=== PATIENT | male | born 1975 | race Two or more races ===

== ENCOUNTER 2021-04-26 09:46 | Outpatient (REF) | payer OTHER, SELFPAY ==
[2021-04-26 11:02] LABS: Hematocrit 45.8 % (42.0-52.0); Hemoglobin 16.2 g/dl (14.0-18.0); Mean Corpuscular HGB Conc 35.4 g/dl (31.0-36.0); Mean Corpuscular Hemoglobin 30.2 pg (27.0-33.0); Mean Corpuscular Volume 85.3 fL (80.0-98.0); Mean Platelet Volume 10.2 fL (9.4-12.4); Platelet Count 249 X10*3/uL (160-400); Red Blood Count 5.37 X10*6/uL (4.60-5.80); Red Cell Distribution Width 11.2 % (11.0-16.0); White Blood Count 7.4 X10*3/uL (4.8-10.8)
[2021-04-26 11:33] LABS: Alanine Aminotransferase 20 U/L (0-40); Albumin Level 4.7 g/dL (3.5-5.0); Alkaline Phosphatase 64 U/L (39-117); Anion Gap 14 (12-20); Aspartate Amino Transferase 13 U/L (5-37); Blood Urea Nitrogen 10 mg/dL (9-16); Calcium 9.9 mg/dL (8.4-10.2); Carbon Dioxide 27 mmol/L (22-29); Chloride 102 mmol/L (96-108); Cholesterol 266 mg/dL; Estimated Glomerular Filt Rate > 60; Glucose Fasting 220 mg/dL (60-99); HDL Cholesterol 38 mg/dL; LDL Cholesterol Calculated 200 mg/dl; Potassium 4.5 mmol/L (3.3-5.1); Sodium 138 mmol/L (135-145); Triglycerides 143 mg/dL
[2021-04-26 11:46] LABS: Prostate Specific Antigen Scr 0.32 ng/mL (<0.05-4.0); TSH reflex Free T4 0.77 uIU/mL (0.32-4.0)
== END 2021-04-26 09:47 | disposition home or self-care (01) ==
LOC: HO.LAB 09:46
PROVIDERS: PCP Physician Assistant; Visit Provider Physician Assistant
DX: E11.9 Type 2 diabetes mellitus without complications (principal); I10 Essential (primary) hypertension; Z12.5 Encounter for screening for malignant neoplasm of prostate
CPT/HCPCS: 36415; 80053; 80061; 84153; 84443; 85027

== ENCOUNTER 2022-08-05 06:15 | Outpatient (REF) | payer OTHER, SELFPAY ==
[2022-08-05 07:34] LABS: Hematocrit 46.9 % (42.0-52.0); Hemoglobin 16.2 g/dl (14.0-18.0); Mean Corpuscular HGB Conc 34.5 g/dl (31.0-36.0); Mean Corpuscular Hemoglobin 29.6 pg (27.0-33.0); Mean Corpuscular Volume 85.7 fL (80.0-98.0); Mean Platelet Volume 10.1 fL (9.4-12.4); Platelet Count 249 X10*3/uL (160-400); Red Blood Count 5.47 X10*6/uL (4.60-5.80); Red Cell Distribution Width 11.3 % (11.0-16.0)
[2022-08-05 08:04] LABS: Microalbum/Creatinine Ratio Ur 11.5 ug/mg cr
[2022-08-05 08:10] LABS: Alanine Aminotransferase 15 U/L (0-40); Albumin Level 4.4 g/dL (3.5-5.0); Alkaline Phosphatase 67 U/L (39-117); Anion Gap 12 (12-20); Aspartate Amino Transferase 13 U/L (5-37); Blood Urea Nitrogen 14 mg/dL (9-16); Calcium 9.3 mg/dL (8.4-10.2); Carbon Dioxide 29 mmol/L (22-29); Chloride 101 mmol/L (96-108); Cholesterol 246 mg/dL; Estimated Glomerular Filt Rate > 60; Glucose Fasting 279 mg/dL (60-99); HDL Cholesterol 37 mg/dL; LDL Cholesterol Calculated 173 mg/dl; Potassium 4.4 mmol/L (3.3-5.1); Sodium 138 mmol/L (135-145); Total Protein 6.4 g/dL (6.5-8.0); Triglycerides 181 mg/dL
[2022-08-05 08:25] LABS: Prostate Specific Antigen Scr 0.35 ng/mL (<0.05-4.0); TSH reflex Free T4 2.53 uIU/mL (0.32-4.0)
== END 2022-08-05 06:16 | disposition home or self-care (01) ==
LOC: HO.LAB 06:15
PROVIDERS: PCP Physician Assistant; Visit Provider Physician Assistant
DX: E11.9 Type 2 diabetes mellitus without complications (principal); Z12.5 Encounter for screening for malignant neoplasm of prostate
CPT/HCPCS: 36415; 80053; 80061; 82043; 84153; 84443; 85027

== ENCOUNTER 2022-08-21 15:01 | Outpatient (REF) | payer OTHER, SELFPAY ==
[2022-08-21 16:09] LABS: Estimated Average Glucose 252 mg/dL; Hemoglobin A1c % 10.4 %
== END 2022-08-21 15:02 | disposition home or self-care (01) ==
LOC: HO.LAB 15:01
PROVIDERS: Visit Provider Nurse Practitioner Family
DX: E11.9 Type 2 diabetes mellitus without complications (principal)
CPT/HCPCS: 36415; 83036

== ENCOUNTER 2022-12-21 08:42 | Outpatient (AMB) | payer OTHER, SELFPAY ==
[2022-12-21 08:44] VITALS: BP 110/70; PULSE 89; O2SAT 95; BMI 26.1
--- NOTE | 2022-12-21 08:44 | A.OFFPC_ITS ---
Vital Signs 12/21/22 08:44 Height 5 ft 8 in Weight 172 lb BMI 26.1 BP 110/70 Blood Pressure Location Lt brachial Position Sitting Pulse 89 Pulse Source Pulse Oximeter Pulse Oximetry (%) 95 Oxygen Delivery Method Room Air Intake Visit Reasons: 3mth f/u Round Kiln Drawer Required: No Accompanied by: Self / Same As Patient Allergies canagliflozin [Invokana] Allergy (Unknown, Verified 12/21/22 08:53) joint pain empagliflozin [From Jardiance] Allergy (Unknown, Verified 12/21/22 08:53) joint pain Medication List - Last Reconciled 12/21/22 by Chino Gutierrez PA-C alcohol swabs 1 pad topical BID 30 days aspirin 81 mg PO DAILY blood sugar diagnostic (FreeStyle Lite Strips) 1 strip miscellaneous BID 30 days bupropion HCl 150 mg PO BID dulaglutide (Trulicity) 3 mg subcut QWEEK 4 weeks hydrocortisone 1% (Anti-Itch (hydrocortisone)) 1 appl topical BEDTIME PRN 30 days lisinopril 2.5 mg PO DAILY metformin 500 mg PO BID omeprazole 20 mg PO DAILY rosuvastatin 40 mg PO DAILY sildenafil 100 mg PO DAILY 10 days Tobacco use date assessed: 12/21/22 Dental Screening Dental Screen Date: 12/21/22 Did you have a dental visit in the last 12 months?: No Did you have a dental problem in the last 6 months where you did not have access to dental care?: No Was dental information given to patient?: No HPI 3mth f/u HPI Details Patient is a 47-year-old male here today for follow-up visit.? Patient has a past medical history significant type 2 diabetes, hyperlipidemia tobacco use disorder. Concerns--> report having globalized myalgias over the last several years though has worsened over the last few weeks. He reports his muscles in his upper extremity and lower extremities a very painful when he tries to do physical activity. .. Type 2 diabetes:? Patient diabetes not well controlled, Reports his diet has not been a strict diabetic diet.? He continues with once a week 3m Trulicity and metformin a 500 b.i.d.. Today's A1c much improved at 7.3 from over 10. You otherwise denies any polyuria, polydipsia. .. Hyperlipidemia: Has a history of high cholesterol, most recent lipid panel showing very elevated total cholesterol and LDL for his cardiovascular risk being a smoker and a type 2 diabetic. Patient does understand and willing to continue on statin therapy. .. Smoker:? She does understand he needs to quit smoking though has found very d ifficult to do so.? He is willing to retry nicotine replacement. Has tried Wellbutrin though is not effective for him. Will consider Chantix in near future if nicotine patches not effective. Laboratory Tests 08/05/21 08/05/22 08/05/22 16:16 06:18 06:18 RBC 5.47 Hgb 16.2 Hgb A1c (Clinic) 9.7 H Hemoglobin A1c % Cholesterol 246 LDL Cholesterol, C alc 173 08/21/22 15:08 RBC Hgb Hgb A1c (Clinic) Hemoglobin A1c % 10.4 Cholesterol LDL Cholesterol, C alc [facility] Surgical History History of appendectomy Family History Father Diabetes CVD (cardiovascular disease) Heart problem Mother Hypoglycemia Daughter Hypoglycemia Daughter In good health Son No problems noted. Son No problems noted. Son No problems noted. Brother No problems noted. Social History Housing: House Alcohol intake: current Alcohol intake frequency: a few times a month Patient Tobacco Use Status: Current everyday Tobacco user Tobacco use type: Cigarette Cigarette Packs Per Day: 1 e-Cigarette/Vaping Use: Never Used Second Hand Smoke Exposure: No service: No Current occupational status: employed Current occupation: route salesman and driver Cognitive needs: No Hearing needs: No Vision needs: No Questionnaire PHQ-9 Over the last 2 weeks, how often have you been bothered by any of the following problems? 1. Little interest or pleasure in doing things: not at all 2. Feeling down, depressed, or hopeless: not at all 3. Trouble falling or staying asleep, or sleeping too much: not at all 4. Feeling tired or having little energy: not at all 5. Poor appetite or overeating: not at all 6. Feeling bad about yourself - or that you are a failure or have let yourself or your family down: not at all 7. Trouble concentrating on things, such as reading the newspaper or watching television: not at all 8. Moving or speaking so slowly that other people could have noticed. Or the opposite - being so fidgety or restless that you have been moving around a lot more than usual: not at all 9. Thoughts that you would be better off or of hurting yourself in some way: not at all Total score: 0 Depression Screening Interpretation: Negative Source: Developed by Drs. Sean Webster, Carolyn Modi, Dillan Hernandez and colleagues, with an educational nick from [employer]. Thrive Questionnaire Date Thrive assessed: 12/21/22 I am a: Patient What is your living situation today?: I have a steady place to live Within the past 12 months, did the food you bought not last and you didn't have the money to get more?: Never true Within the past 12 months, did you worry whether your food would run out before you got money to buy more?: Never true Do you have trouble paying for medicines?: No Do you have trouble getting transportation to medical appointments?: No Do you have trouble paying your heating and electricity bill?: No Do you have trouble taking care of your child, family member or friend?: No Do you have trouble with day-to-day activities such as bathing, preparing meals, shopping, managing finances, etc.?: No Are you currently unemployed and looking for a job?: No Are you interested in more education?: No Please select the resources that you would like help with: None Currently or been in a relationship where the following occur: no concerns reported AUDIT C Alcohol Use Questionnaire (AUDIT-C) 1. How often do you have a drink containing alcohol?: 2-3 times a week 2. How many drinks containing alcohol do you have on a typical day when you are drinking?: 1 or 2 3. How often do you have six or more drinks on one occasion?: Never Total Score: 3 ANDRE-7 AMB Questionnaire ANDRE-7 Date ANDRE - 7 assessed: 12/21/22 Feeling nervous, anxious, or on edge: 0 = Not at all Not being able to stop or control worryin = Not at all Worrying too much about different things: 0 = Not at all Trouble relaxin = Not at all Being so restless that it is hard to sit still: 0 = Not at all Becoming easily annoyed or irritable: 0 = Not at all Feeling afraid as if something awful might happen: 0 = Not at all Total ANDRE-7 score (0-4 normal; 5-9 mild; 10-14 moderate; 15-21 severe): 0 Source: Developed by Drs. Sean Webster, Carolyn Modi, Dillan Hernandez and colleagues, with an educational nick from [employer]. ANDRE-7 Assessment Billing ANDRE-7 Assessment Tool: ANDRE-7 Assessment 33679 Review of Systems Const Denies headache(s) Eyes Denies loss of vision ENT Denies vertigo, Denies dizziness, Denies headache(s) and Denies sore throat Card Denies chest pain, Denies leg edema and Denies lightheadedness Resp Denies cough, Denies hemoptysis and Denies wheezing GI Denies abdominal pain, Denies melena, Denies constipation, Denies diarrhea and Denies vomiting Denies dysuria, Denies urinary frequency and Denies urinary urgency Musc Denies arthralgias, Denies joint swelling, Denies numbness and Denies tingling Neuro Denies Abnormal speech present, Denies behavioral changes, Denies vertigo, Denies dizziness, Denies headache(s), Denies loss of vision, Denies memory loss, Denies numbness and Denies tingling Psych Denies anxiety, Denies behavioral changes, Denies depression, Denies memory loss and Denies panic attacks Ac/Lymph Denies easy bleeding and Denies easy bruising Aller/Immun Denies wheezing Physical exam (Primary Care) Vital Signs: Last Vital Signs Pulse 89 12/21/22 08:44 BP 110/70 12/21/22 08:44 Pulse Ox 95 12/21/22 08:44 Oxygen Delivery Method Room Air 12/21/22 08:44 BMI result Body Mass Index 26.1 Tobacco/Smoking Status: Tobacco use Status Tobacco use date assessed 12/21/22 12/21/22 08:51 Patient Tobacco Use Status Current everyday Tobacco 12/21/22 08:51 Tobacco use type Cigarette 12/21/22 08:51 e-Cigarette/Vaping Use Never Used 12/21/22 08:51 Are you ready to quit: No Tobacco cessation counseling provided: Yes Relapse Prevention: discussed the importance of a supportive environment, discussed negative mood or depression after quitting and weight gain after smoking is common Number of minutes spent counselin CPT code: 45443 - 4-10 Minutes PHQ-9: PHQ-9 Score PHQ-9: Total score 0 12/21/22 09:00 Depression Screening Interpretation: Negative Thrive Assessment: Date of Thrive Assessment Date Thrive assessed 12/21/22 12/21/22 08:51 Currently or been in a relationship where the following occur: no concerns reported Const General: healthy appearing, no acute distress, alert and awake Nutritional Appearance: well nourished Orientation/consciousness: oriented to person, oriented to place and oriented to time HENMT Ears: TM's normal bilaterally General nose exam: Normal nasal mucous membranes and turbinates present Eyes Conjunctivae: conjunctivae normal Sclerae: sclerae normal Pupils: Equal, round and reactive pupils present Neck Neck: Yes no lymphadenopathy and Yes no JVD Thyroid: Thyroid normal Carotids: no bruits Resp Effort & Inspection: normal respiratory effort and not tachypneic Auscultation: no crackles, no rales, no rhonchi and no wheezes Cardio Rate: regular rate Rhythm: regular rhythm Heart sounds: no murmurs and normal S1 and S2 GI Palpation (GI): Soft to palpation, nontender, no hepatomegaly and no splenomegaly Auscultation: normal bowel sounds Skin General skin exam: no rashes or lesions noted and dry skin Neuro General: oriented to person, oriented to place and oriented to time Cranial nerves: Yes Equal, round and reactive pupils present Speech: No Abnormal speech present Gait exam (Neuro): Normal gait present Motor exam (neuro): no tremor noted Extrem Right upper extremity: full ROM Left upper extremity: full ROM Right lower extremity: full ROM; no edema Left lower extremity: full ROM; no edema Psych Mental Status: mental status grossly normal Speech and movement: Normal speech and movement present Affect: normal affect Attitude: cooperative Thought process: Normal thought process present Results AMB Hemoglobin A1c AMB Hemoglobin A1c 7.6 % Last Edit by Kacey James on 12/21/22 09:01 Results Reviewed Results Reviewed: Laboratory Last Values Hgb A1c (Clinic) 7.6 % (4.0-6.0) H 12/21/22 08:56 Assessment and Plan Assessment & Plan (1) DMII (diabetes mellitus, type 2): Code(s): E11.9 - Type 2 diabetes mellitus without complications Qualifiers: Diabetes mellitus complication status: without complication Diabetes mellitus termite exterminator helper insulin use: without termite exterminator helper use Qualified Code(s): E11.9 - Type 2 diabetes mellitus without complications Plan: Patient's type 2 diabetes suboptimally controlled with current medication. A1c has improved since increasing his Trulicity dose. Patient not able to tolerate metformin a 1000 b.i.d. though is able to tolerate 500 b.i.d.. He will continue working on lifestyle modifications to continue to control diabetes. Advised on increasing his physical activity as tolerated. G oal A1c to be below 7.0 (2) HLD (hyperlipidemia): Code(s): E78.5 - Hyperlipidemia, unspecified Qualifiers: Hyperlipidemia type: mixed hyperlipidemia Qualified Code(s): E78.2 - Mixed hyperlipidemia Plan: Continues on statin therapy, does report myalgias may be related to his statin therapy. Will transition him to simvastatin 40 mg. Advised on Co Q10 (3) Tobacco use disorder: Code(s): F17.200 - Nicotine dependence, unspecified, uncomplicated Plan: Unfortunately continues to smoke and does understand he needs to quit. Willing to try nicotine patches again to help him quit. Bupropion was was not effective. If nicotine replacement fails will consider generic Chantix (4) Myalgia: Code(s): M79.10 - Myalgia, unspecified site Orders: Orders Comprehensive [place]. Panel Fast Today E11.9 - Type 2 diabetes mellitus without complications Lipid Panel Today E78.2 - Mixed hyperlipidemia Microalbumin, Random (w Creat) Today E11.9 - Type 2 diabetes mellitus without complications Complete Blood Count no Diff Today E11.9 - Type 2 diabetes mellitus without complications AMB Hemoglobin A1c Today E11.9 - Type 2 diabetes mellitus without complications Medications: New nicotine 1 patch transdermal DAILY 14 days 14 ea 0RF F17.200 - Nicotine dependence, unspecified, uncomplicated nicotine 1 patch transdermal DAILY 14 days 14 ea 0RF F17.200 - Nicotine dependence, unspecified, uncomplicated simvastatin 40 mg PO DAILY 90 days 90 tabs 1RF E78.2 - Mixed hyperlipidemia magnesium oxide 250 mg PO DAILY 90 days 90 tabs 1RF M79.10 - Myalgia, unspecified site Discontinued bupropion HCl Discontinued Reason: Doctor's Order 150 mg PO BID 180 tabs 1RF F17.200 - Nicotine dependence, unspecified, uncomplicated rosuvastatin Discontinued Reason: Doctor's Order 40 mg PO DAILY 90 tabs 1RF E11.9 - Type 2 diabetes mellitus without complications Coding Level of Care Code Est Pt Level 4 (61682) Diagnoses DMII (diabetes mellitus, type 2) E11.9 Diabetes mellitus complication status: without complication Diabetes mellitus termite exterminator helper insulin use: without termite exterminator helper use HLD (hyperlipidemia) E78.2 Hyperlipidemia type: mixed hyperlipidemia Tobacco use disorder F17.200 Myalgia M79.10 Additional Codes ANDRE-7 Assessment Billing - ANDRE-7 Assessment Tool: ANDRE-7 Assessment 31433 ([id number]) Vital Signs *Quality* - CPT code: 32287 - 4-10 Minutes ([id number])
== END 2022-12-21 09:17 | disposition home or self-care (01) ==
PROVIDERS: PCP Physician Assistant; Visit Provider Physician Assistant
DX: E11.9 Type 2 diabetes mellitus without complications (principal); F17.210 Nicotine dependence, cigarettes, uncomplicated; E78.2 Mixed hyperlipidemia; M79.10 Myalgia, unspecified site
CPT/HCPCS: 83036; 99214

== ENCOUNTER 2022-12-21 09:19 | Outpatient (REF) | payer OTHER, SELFPAY ==
[2022-12-21 10:10] LABS: Hematocrit 45.8 % (42.0-52.0); Hemoglobin 15.6 g/dl (14.0-18.0); Mean Corpuscular HGB Conc 34.1 g/dl (31.0-36.0); Mean Corpuscular Hemoglobin 29.5 pg (27.0-33.0); Mean Corpuscular Volume 86.6 fL (80.0-98.0); Mean Platelet Volume 9.8 fL (9.4-12.4); Platelet Count 236 X10*3/uL (160-400); Red Blood Count 5.29 X10*6/uL (4.60-5.80); Red Cell Distribution Width 10.9 % (11.0-16.0); White Blood Count 6.6 X10*3/uL (4.8-10.8)
[2022-12-21 10:36] LABS: Alanine Aminotransferase 19 U/L (0-40); Albumin Level 4.7 g/dL (3.5-5.0); Alkaline Phosphatase 60 U/L (39-117); Anion Gap 13 (12-20); Aspartate Amino Transferase 14 U/L (5-37); Bilirubin Total 0.5 mg/dL (0.0-1.0); Blood Urea Nitrogen 16 mg/dL (9-16); Calcium 9.4 mg/dL (8.4-10.2); Carbon Dioxide 27 mmol/L (22-29); Chloride 103 mmol/L (96-108); Cholesterol 183 mg/dL; Estimated Glomerular Filt Rate > 60; Glucose Fasting 179 mg/dL (60-99); HDL Cholesterol 53 mg/dL; LDL Cholesterol Calculated 116 mg/dl; Potassium 4.4 mmol/L (3.3-5.1); Sodium 139 mmol/L (135-145); Total Protein 7.2 g/dL (6.5-8.0); Triglycerides 72 mg/dL
== END 2022-12-21 09:20 | disposition home or self-care (01) ==
LOC: HO.LAB 09:19
PROVIDERS: PCP Physician Assistant; Visit Provider Physician Assistant
DX: E11.9 Type 2 diabetes mellitus without complications (principal); E78.2 Mixed hyperlipidemia
CPT/HCPCS: 36415; 80053; 80061; 82043; 85027

== ENCOUNTER 2023-02-22 14:20 | Outpatient (AMB) | payer OTHER, SELFPAY ==
[2023-02-22 14:28] VITALS: BP 102/68; PULSE 100; RESP 16; O2SAT 98; BMI 26.0
--- NOTE | 2023-02-22 14:28 | MHC.PC.OV ---
Vital Signs 02/22/23 14:28 Height 5 ft 8 in Weight 171 lb BMI 26.0 BP 102/68 Blood Pressure Location Lt brachial Position Sitting Respiration 16 Pulse 100 Pulse Source Pulse Oximeter Pulse Oximetry (%) 98 Oxygen Delivery Method Room Air Intake Visit Reasons: Annual exam Intake Note: Patient is here today for a physical. Flyer Builder Required: No Accompanied by: Self / Same As Patient Allergies canagliflozin [Invokana] Allergy (Unknown, Verified 02/22/23 14:43) joint pain empagliflozin [From Jardiance] Allergy (Unknown, Verified 02/22/23 14:43) joint pain Medication List - Last Reconciled 02/22/23 by Chino Gutierrez PA-C alcohol swabs 1 pad topical BID 30 days aspirin 81 mg PO DAILY blood sugar diagnostic (FreeStyle Lite Strips) 1 strip miscellaneous BID 30 days dulaglutide (Trulicity) 3 mg subcut QWEEK 4 weeks hydrocortisone 1% (Anti-Itch (hydrocortisone)) 1 appl topical BEDTIME PRN 30 days lisinopril 2.5 mg PO DAILY magnesium oxide 250 mg PO DAILY 90 days metformin 500 mg PO BID nicotine 1 patch transdermal DAILY 14 days nicotine 1 patch transdermal DAILY 14 days omeprazole 20 mg PO DAILY sildenafil 100 mg PO DAILY 10 days simvastatin 40 mg PO DAILY 90 days Tobacco use date assessed: 12/21/22 Dental Screening Dental Screen Date: 02/22/23 Did you have a dental visit in the last 12 months?: Yes Did you have a dental problem in the last 6 months where you did not have access to dental care?: No Was dental information given to patient?: Patient has dentist HPI Annual exam HPI Details ? ? Patient is a 47-year-old male here today routine annual physical.? Patient has a past medical history significant type 2 diabetes, hyperlipidemia tobacco use disorder. --concern> Myalgias: We have switched his statin therapy to a lower potency statin though continues to have myalgias--> report having globalized myalgias over the last several years though has worsened over the last few weeks. He reports his muscles in his upper extremity and lower extremities a very painful when he tries to do physical activity. Also has been dealing with Peyronie's syndrome for the last couple years, has seen neurology in the past and was told he needed special injections own to be done in [place] by Urology. .. Type 2 diabetes:? Patient diabetes has been better controlled at due to be more compliant with his medication, Reports his diet has not been a strict diabetic diet.? He continues with once a week 3m Trulicity and metformin a 500 b.i.d.. Today's A1c much improved at 7.3 You otherwise denies any polyuria, polydipsia. .. Hyperlipidemia: Has a history of high cholesterol, most recent lipid panel showing very elevated total cholesterol and LDL for his cardiovascular risk being a smoker and a type 2 diabetic. Patient does understand and willing to continue on statin therapy. .. Smoker:? She does understand he needs to quit smoking though has found very difficult to do so.? He is willing to retry nicotine replacement. Has tried Wellbutrin though is not effective for him. Will consider Chantix in near future if nicotine patches not effective. Colon cancer screening: willing to do colonoscopy . Vaccines: Up-to-date with COVID vaccine, needs pneumonia vaccine, tetanus vaccine [facility] Surgical History History of appendectomy Family History Father Diabetes CVD (cardiovascular disease) Heart problem Mother Hypoglycemia Daughter Hypoglycemia Daughter In good health Son No problems noted. Son No problems noted. Son No problems noted. Brother No problems noted. Social History (Updated 02/22/23 @ 14:49 by Chino Gutierrez PA-C) Housing: House Alcohol intake: current Alcohol intake frequency: a few times a month Patient Tobacco Use Status: Current everyday Tobacco user Tobacco use type: Cigarette Cigarettes Per Day: 5 e-Cigarette/Vaping Use: Never Used Second Hand Smoke Exposure: No service: No Current occupational status: employed Current occupation: trailer truck driver Cognitive needs: No Hearing needs: No Vision needs: No Questionnaire Thrive Questionnaire Date Thrive assessed: 12/21/22 ANDRE-7 AMB Questionnaire ANDRE-7 Date ANDRE - 7 assessed: 12/21/22 Source: Developed by Drs. Sean Webster, Carolyn Modi, Dillan Hernandez and colleagues, with an educational nick from [employer]. Review of Systems Const Denies body aches, Denies chills, Denies excessive sweating, Denies fatigue, Denies fever(s) and Denies headache(s) Eyes Denies blurry vision ENT Denies dysphagia, Denies vertigo, Denies dizziness, Denies headache(s), Denies hearing loss and Denies tinnitus Card Denies chest pain, Denies chest pain with activity, Denies syncope, Denies irregular heart rhythm and Denies dyspnea Resp Denies chest congestion, Denies cough, Denies hemoptysis, Denies dyspnea and Denies wheezing GI Denies abdominal pain, Denies melena, Denies hematochezia, Denies coffee ground emesis, Denies dysphagia, Denies diarrhea, Denies nausea and Denies vomiting Denies difficulty urinating, Denies dysuria, Denies urinary frequency, Denies urinary hesitancy and Denies urinary urgency Musc Denies arthralgias, Denies limited range of motion, Denies muscle cramps and Denies muscle weakness Skin/Breast Denies rash and Denies skin ulcer Neuro Denies Abnormal speech present, Denies confusion, Denies vertigo, Denies dizziness, Denies syncope, Denies headache(s), Denies memory loss and Denies seizure-like activity Psych Denies anxiety, Denies confusion, Denies depression, Denies memory loss, Denies panic attacks and Denies paranoia Endo Denies excessive sweating, Denies fatigue, Denies flushing, Denies polydipsia and Denies polyuria Aller/Immun Denies wheezing Physical exam (Primary Care) Vital Signs: Last Vital Signs Pulse 100 02/22/23 14:28 Resp 16 02/22/23 14:28 BP 102/68 02/22/23 14:28 Pulse Ox 98 02/22/23 14:28 Oxygen Delivery Method Room Air 02/22/23 14:28 BMI result Body Mass Index 26.0 Tobacco/Smoking Status: Tobacco use Status Tobacco use date assessed 12/21/22 02/22/23 14:28 Patient Tobacco Use Status Current everyday Tobacco 02/22/23 14:49 Tobacco use type Cigarette 02/22/23 14:49 e-Cigarette/Vaping Use Never Used 02/22/23 14:49 Are you ready to quit: No Tobacco cessation counseling provided: Yes Relapse Prevention: discussed the importance of a supportive environment, discussed negative mood or depression after quitting, weight gain after smoking is common and discussed dietary, exercise and/or lifestyle changes Number of minutes spent counselin CPT code: 16717 - 4-10 Minutes Thrive Assessment: Date of Thrive Assessment Date Thrive assessed 12/21/22 02/22/23 14:28 Const General: cooperative, comfortable, no acute distress, alert and awake; No confusion Orientation/consciousness: oriented to person, oriented to place, patient oriented x3 and No confusion HENMT Head: Yes normocephalic Ears: external ears normal and TM's normal bilaterally Face and sinus: No sinus tenderness Mouth: Normal oral and palatal mucosa present and tongue normal Teeth and gingiva: dentition normal and gingiva normal Throat: Yes posterior oropharynx normal, Yes tonsils normal and Yes uvula midline Eyes Conjunctivae: conjunctivae normal Sclerae: sclerae normal Pupils: Equal, round and reactive pupils present EOM: EOMs intact bilaterally Direct Ophthalmoscopy: No no photophobia Neck Neck: Yes no lymphadenopathy, No tender and Yes no JVD Thyroid: Thyroid normal Carotids: no bruits Chest Chest palpation & inspection: no tenderness Resp Effort & Inspection: normal respiratory effort, no audible wheezes, not labored and no stridor Auscultation: no crackles, no rales, no rhonchi and no wheezes Cardio Jugular venous distension: no JVD Rate: regular rate, not bradycardic and not tachycardic Rhythm: regular rhythm Bruits: no carotid bruits Peripheral pulses: Peripheral pulses 2+ throughout GI Inspection: Yes normal to inspection, No abdominal wall ecchymosis and No visible herniation Palpation (GI): Soft to palpation, nontender, no guarding, not rigid and No hepatosplenomegaly present Auscultation: normoactive bowel sounds General: Yes no CVA tenderness Back/Spine/Pelvis Back: no CVA tenderness and No back tenderness Cervical Spine: cervical ROM normal Thoracic/Lumbar Spine: thoracic and lumbar spine normal to inspection, straight leg raise negative bilaterally, No thoraco-lumbar ROM limited and No lumbar spinal tenderness Skin Lesions: no lesions Rashes: no rashes Wounds: no wounds Neuro General: oriented to person, oriented to place, patient oriented x3, CN's II-XI intact bilaterally and No confusion Cranial nerves: Yes Equal, round and reactive pupils present and Yes Normal accommodation reflex present Cognition (Neuro): normal cognition Speech: No Abnormal speech present Gait exam (Neuro): Normal gait present Motor exam (neuro): 5/5 motor strength present throughout Extrem Right upper extremity: full ROM; no cyanosis Left upper extremity: full ROM; no cyanosis Right lower extremity: no edema Left lower extremity: no edema Psych Appearance: grossly normal Mental Status: mental status grossly normal Affect: normal affect Attitude: cooperative Thought process: Normal thought process present Assessment and Plan Assessment & Plan (1) Annual physical exam: Code(s): Z00.00 - Encounter for general adult medical examination without abnormal findings (2) DMII (diabetes mellitus, type 2): Code(s): E11.9 - Type 2 diabetes mellitus without complications Qualifiers: Diabetes mellitus complication status: without complication Diabetes mellitus fdc insulin use: without terminal operator use Qualified Code(s): E11.9 - Type 2 diabetes mellitus without complications Plan: Patient's type 2 diabetes suboptimally controlled with current medication. A1c has improved since increasing his Trulicity dose. Patient not able to tolerate metformin a 1000 b.i.d. though is able to tolerate 500 b.i.d.. He will continue working on lifestyle modifications to continue to control diabetes. Advised on increasing his physical activity as tolerated. Goal A1c to be below 7.0 (3) HLD (hyperlipidemia): Code(s): E78.5 - Hyperlipidemia, unspecified Qualifiers: Hyperlipidemia type: mixed hyperlipidemia Qualified Code(s): E78.2 - Mixed hyperlipidemia Plan: Continues on statin therapy, does report myalgias may be related to his statin therapy. Have transitioned him to simvastatin 40 though continues with his myalgias. Will check his creatinine kinase and KATJA, rheumatoid factor. Advised on Co Q10 and or fish oil (4) Tobacco use disorder: Code(s): F17.200 - Nicotine dependence, unspecified, uncomplicated Plan: Unfortunately continues to smoke and does understand he needs to quit. Willing to try nicotine patches again to help him quit. Bupropion was was not effective. If nicotine replacement fails will consider generic Chantix (5) Myalgia: Code(s): M79.10 - Myalgia, unspecified site Plan: As above continues to have myalgias in his upper and lower extremities worse with physical activity. Was thought to be cholesterol medication we had switched him to simvastatin 40 and still has myalgias. Will check his creatinine kinase (6) Peyronie's syndrome: Code(s): N48.6 - Induration penis plastica Plan: Patient has a several year history of Peyronie's syndrome. Has seen urology in the past and was told he needed a see Urology in [place] for special injections to help loosen the fibrous tissue. We have tried sildenafil though was not covered by insurance and much too expensive. Will try Rx for Cialis in the time being. Will try to reestablish care with Urology to get process going on injections for his Peyronie's syndrome. Orders: Orders Creatine Kinase Total 02/22/23 M79.10 - Myalgia, unspecified site Rheumatoid Factor 02/22/23 M79.10 - Myalgia, unspecified site Hemoglobin A1c 02/22/23 E11.9 - Type 2 diabetes mellitus without complications Comprehensive [place]. Panel Fast 02/22/23 E11.9 - Type 2 diabetes mellitus without complications Complete Blood Count no Diff 02/22/23 E11.9 - Type 2 diabetes mellitus without complications Lipid Panel 02/22/23 E78.2 - Mixed hyperlipidemia KATJA Reflex Titer and Pattern 02/22/23 M79.10 - Myalgia, unspecified site Referrals Urology Referral N48.6 - Induration penis plastica Medications: New flash glucose scanning reader (FreeStyle Mathew 2 [place]) As directed 1 ea 0RF E11.9 - Type 2 diabetes mellitus without complications flash glucose sensor (FreeStyle Mathew 2 Sensor kit) As directed 1 ea 6RF E11.9 - Type 2 diabetes mellitus without complications tadalafil (Cialis) administer approximately 30min before sexual activity; do not use more than 1 dose per 24hrs 20 mg PO DAILY 7 days PRN 7 tabs 0RF sexual activity N48.6 - Induration penis plastica Discontinued sildenafil Discontinued Reason: Doctor's Order 100 mg PO DAILY 10 days 10 tabs 0RF N48.6 - Induration penis plastica Coding Level of Care Code Est Pt Prev Care 40-64y(95525) Diagnoses Annual physical exam Z00.00 Type 2 diabetes mellitus without complication, without long-term current use of insulin E11.9 Diabetes mellitus complication status: without complication Diabetes mellitus terminal operator insulin use: without fdc use Mixed hyperlipidemia E78.2 Hyperlipidemia type: mixed hyperlipidemia Tobacco use disorder F17.200 Myalgia M79.10 Peyronie's syndrome N48.6 Additional Codes Vital Signs *Quality* - CPT code: 24398 - 4-10 Minutes ([id number])
== END 2023-02-22 15:06 | disposition home or self-care (01) ==
PROVIDERS: PCP Physician Assistant; Visit Provider Physician Assistant
DX: Z00.00 Encounter for general adult medical examination without abnormal findings (principal); E11.9 Type 2 diabetes mellitus without complications; F17.210 Nicotine dependence, cigarettes, uncomplicated; E78.2 Mixed hyperlipidemia; M79.10 Myalgia, unspecified site; N48.6 Induration penis plastica
CPT/HCPCS: 99396; 99406

== ENCOUNTER 2023-05-13 08:49 | Outpatient (AMB) | payer OTHER, SELFPAY ==
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
== END 2023-05-13 09:57 | disposition home or self-care (01) ==
PROVIDERS: PCP Physician Assistant; Visit Provider Urology
DX: N48.6 Induration penis plastica (principal); N52.9 Male erectile dysfunction, unspecified
CPT/HCPCS: 99204

== ENCOUNTER → 2023-05-13 08:49 | Outpatient (BNVA) | payer OTHER, SELFPAY | PROVIDERS: PCP Physician Assistant; Visit Provider Urology | DX: N48.6 Induration penis plastica (principal); N52.9 Male erectile dysfunction, unspecified | CPT/HCPCS: 81003; 99202 ==

== ENCOUNTER 2023-05-24 14:56 | Outpatient (AMB) | payer OTHER, SELFPAY ==
[2023-05-24 15:01] VITALS: BP 114/68; PULSE 74; RESP 17; BMI 26.5
--- NOTE | 2023-05-24 15:01 | MHC.PC.OV ---
Vital Signs 05/24/23 15:01 Height 5 ft 8 in Weight 174 lb BMI 26.5 BP 114/68 Blood Pressure Location Lt brachial Position Sitting Respiration 17 Pulse 74 Pulse Source Palpation Intake Visit Reasons: f/u DMII Clinical Appeals Auditor Required: No Accompanied by: Self / Same As Patient Allergies canagliflozin [Invokana] Allergy (Unknown, Verified 05/24/23 15:20) joint pain empagliflozin [From Jardiance] Allergy (Unknown, Verified 05/24/23 15:20) joint pain Medication List - Last Reconciled 05/24/23 by Chino Gutierrez PA-C alcohol swabs 1 pad topical BID 30 days aspirin 81 mg PO DAILY blood sugar diagnostic (FreeStyle Lite Strips) 1 strip miscellaneous BID 30 days dulaglutide (Trulicity) 3 mg (0.5 mL) subcut QWEEK 90 days flash glucose scanning reader (AnyPerkStyle [place]w 2 [place]) As directed lisinopril 2.5 mg PO DAILY magnesium oxide 250 mg PO DAILY 90 days metformin 500 mg PO BID omeprazole 20 mg PO DAILY simvastatin 40 mg PO DAILY 90 days tadalafil (Cialis) 5 mg PO DAILY Tobacco use date assessed: 12/21/22 Dental Screening Dental Screen Date: 05/24/23 Did you have a dental visit in the last 12 months?: No Did you have a dental problem in the last 6 months where you did not have access to dental care?: Yes Was dental information given to patient?: Yes HPI f/u DMII HPI Details ? ? Patient is a 47-year-old male here today for a follow up. ? Patient has a past medical history significant type 2 diabetes, hyperlipidemia tobacco use disorder. --concern> has noted plantar lumps over bilateral feet. He reports no pain when standing or walking though when he touches to lumps tear is pain. He is interested in having this evaluated. . .. Type 2 diabetes: Today's A1c is 6.6 from 7.4. He reports blood sugars when taken at home have been fairly stable. ? Patient diabetes has been better controlled at due to be more compliant with his medication, Reports his diet has not been a strict diabetic diet.? He continues with once a week 3m Trulicity and metformin a 500 b.i.d. .. Hyperlipidemia: Most recent lipid panel showing improved total cholesterol and LDL. LDL still above goal of 100. --> Patient does understand and willing to continue on statin therapy. He will continue to work on low-cholesterol diet .. Smoker:? He reports he cut down smoking a bit his last set office visit. She does understand he needs to quit smoking though has found very difficult to do so.? He is willing to retry nicotine replacement. Has tried Wellbutrin though is not effective for him. [facility] Surgical History History of appendectomy Family History Father Diabetes CVD (cardiovascular disease) Heart problem Mother Hypoglycemia Daughter Hypoglycemia Daughter In good health Son No problems noted. Son No problems noted. Son No problems noted. Brother No problems noted. Social History (Updated 05/24/23 @ 15:22 by Chino Gutierrez PA-C) Housing: House Alcohol intake: current Alcohol intake frequency: a few times a month Patient Tobacco Use Status: Current everyday Tobacco user Tobacco use type: Cigarette Cigarettes Per Day: 10 e-Cigarette/Vaping Use: Never Used Second Hand Smoke Exposure: No service: No Current occupational status: employed Current occupation: trailer truck driver Cognitive needs: No Hearing needs: No Vision needs: No Questionnaire Thrive Questionnaire Date Thrive assessed: 12/21/22 ANDRE-7 AMB Questionnaire ANDRE-7 Date ANDRE - 7 assessed: 12/21/22 Source: Developed by Drs. Sean Webster, Carolyn Modi, Dillan Hernandez and colleagues, with an educational nick from [employer]. Review of Systems Const Denies headache(s) Eyes Denies loss of vision ENT Denies vertigo, Denies dizziness, Denies headache(s) and Denies sore throat Card Denies chest pain, Denies leg edema and Denies lightheadedness Resp Denies cough, Denies hemoptysis and Denies wheezing GI Denies abdominal pain, Denies melena, Denies constipation, Denies diarrhea and Denies vomiting Denies dysuria, Denies urinary frequency and Denies urinary urgency Musc Denies arthralgias, Denies joint swelling, Denies numbness and Denies tingling Neuro Denies Abnormal speech present, Denies behavioral changes, Denies vertigo, Denies dizziness, Denies headache(s), Denies loss of vision, Denies memory loss, Denies numbness and Denies tingling Psych Denies anxiety, Denies behavioral changes, Denies depression, Denies memory loss and Denies panic attacks Ac/Lymph Denies easy bleeding and Denies easy bruising Aller/Immun Denies wheezing Physical exam (Primary Care) Vital Signs: Last Vital Signs Pulse 74 05/24/23 15:01 Resp 17 05/24/23 15:01 BP 114/68 05/24/23 15:01 BMI result Body Mass Index 26.5 Tobacco/Smoking Status: Tobacco use Status Tobacco use date assessed 12/21/22 05/24/23 15:01 Patient Tobacco Use Status Current everyday Tobacco 05/24/23 15:22 Tobacco use type Cigarette 05/24/23 15:22 e-Cigarette/Vaping Use Never Used 05/24/23 15:22 Are you ready to quit: No Tobacco cessation counseling provided: Yes Items discussed: Nicotine replacement and QuitWorks Relapse Prevention: discussed the importance of a supportive environment, discussed negative mood or depression after quitting, weight gain after smoking is common and discussed dietary, exercise and/or lifestyle changes Number of minutes spent counselin CPT code: 97025 - 4-10 Minutes Thrive Assessment: Date of Thrive Assessment Date Thrive assessed 12/21/22 05/24/23 15:01 Const General: healthy appearing, no acute distress, alert and awake Nutritional Appearance: well nourished Orientation/consciousness: oriented to person, oriented to place and oriented to time HENMT Ears: TM's normal bilaterally General nose exam: Normal nasal mucous membranes and turbinates present Eyes Conjunctivae: conjunctivae normal Sclerae: sclerae normal Pupils: Equal, round and reactive pupils present Neck Neck: Yes no lymphadenopathy and Yes no JVD Thyroid: Thyroid normal Carotids: no bruits Resp Effort & Inspection: normal respiratory effort and not tachypneic Auscultation: no crackles, no rales, no rhonchi and no wheezes Cardio Rate: regular rate Rhythm: regular rhythm Heart sounds: no murmurs and normal S1 and S2 GI Palpation (GI): Soft to palpation, nontender, no hepatomegaly and no splenomegaly Auscultation: normal bowel sounds Skin General skin exam: no rashes or lesions noted and dry skin Neuro General: oriented to person, oriented to place and oriented to time Cranial nerves: Yes Equal, round and reactive pupils present Speech: No Abnormal speech present Gait exam (Neuro): Normal gait present Motor exam (neuro): no tremor noted Extrem Right upper extremity: full ROM Left upper extremity: full ROM Right lower extremity: full ROM; no edema Left lower extremity: full ROM; no edema Psych Mental Status: mental status grossly normal Speech and movement: Normal speech and movement present Affect: normal affect Attitude: cooperative Thought process: Normal thought process present Results AMB Hemoglobin A1c AMB Hemoglobin A1c 6.6 % Last Edit by ZHAO Meehan on 05/24/23 15:31 Results Reviewed Results Reviewed: Laboratory Last Values Hgb A1c (Clinic) 6.6 % (4.0-6.0) H 05/24/23 15:01 Assessment and Plan Assessment & Plan (1) DMII (diabetes mellitus, type 2): Code(s): E11.9 - Type 2 diabetes mellitus without complications Qualifiers: Diabetes mellitus complication status: without complication Diabetes mellitus equipment operator intermodal yard insulin use: without equipment operator intermodal yard use Qualified Code(s): E11.9 - Type 2 diabetes mellitus without complications Plan: Patient's type 2 diabetes suboptimally controlled with current medication. A1c has improved since increasing his Trulicity dose. Patient not able to tolerate metformin a 1000 b.i.d. though is able to tolerate 500 b.i.d.. He will continue working on lifestyle modifications to continue to control diabetes. Advised on increasing his physical activity as tolerated. Goal A1c to be below 7.0 (2) HLD (hyperlipidemia): Code(s): E78.5 - Hyperlipidemia, unspecified Qualifiers: Hyperlipidemia type: mixed hyperlipidemia Qualified Code(s): E78.2 - Mixed hyperlipidemia Plan: Continues on statin therapy most recent lipid panel showing appropriate total cholesterol. LDL remains slightly elevated at 116. He will continue to work on dietary modification. He did have side effects to higher potency statins Continues on simvastatin 40mg. Goal LDL to be below 100 (3) Tobacco use disorder: Code(s): F17.200 - Nicotine dependence, unspecified, uncomplicated Plan: Unfortunately continues to smoke and does understand he needs to quit. Has tried nicotine replacement which was not active interested in trying any medication. (4) Lesion of left plantar nerve: Code(s): G57.62 - Lesion of plantar nerve, left lower limb Plan: Has bilateral lesion over plantar region. Not bothering him when standing though does report some pain to palpation of the area. Will send to Podiatry for evaluation. Orders: Orders AMB Hemoglobin A1c 05/24/23 E11.9 - Type 2 diabetes mellitus without complications TSH reflex Free T4 05/24/23 E78.2 - Mixed hyperlipidemia Referrals Podiatry Referral G57.62 - Lesion of plantar nerve, left lower limb Medications: Refilled alcohol swabs 1 pad topical BID 30 days 100 pad 3RF for diabetes mellitus E11.9 - Type 2 diabetes mellitus without complications simvastatin 40 mg PO DAILY 90 days 90 tabs 1RF E78.2 - Mixed hyperlipidemia Coding Level of Care Code Est Pt Level 4 (45945) Diagnoses Type 2 diabetes mellitus without complication, without long-term current use of insulin E11.9 Diabetes mellitus complication status: without complication Diabetes mellitus alf insulin use: without equipment operator intermodal yard use Mixed hyperlipidemia E78.2 Hyperlipidemia type: mixed hyperlipidemia Tobacco use disorder F17.200 Lesion of left plantar nerve G57.62 Additional Codes Vital Signs *Quality* - CPT code: 57595 - 4-10 Minutes ([id number])
== END 2023-05-24 15:36 | disposition home or self-care (01) ==
PROVIDERS: PCP Physician Assistant; Visit Provider Physician Assistant
DX: E11.9 Type 2 diabetes mellitus without complications (principal)
CPT/HCPCS: 83036; 99214; 99406

== ENCOUNTER 2023-08-10 10:24 | Outpatient (REF) | payer OTHER, SELFPAY ==
[2023-08-10 11:08] LABS: Hematocrit 46.6 % (42.0-52.0); Hemoglobin 16.3 g/dl (14.0-18.0); Mean Corpuscular Hemoglobin 30.1 pg (27.0-33.0); Mean Platelet Volume 9.6 fL (9.4-12.4); Platelet Count 255 X10*3/uL (160-400); Red Blood Count 5.42 X10*6/uL (4.60-5.80); Red Cell Distribution Width 11.3 % (11.0-16.0); White Blood Count 6.8 X10*3/uL (4.8-10.8)
[2023-08-10 11:21] LABS: Estimated Average Glucose 120 mg/dL; Hemoglobin A1c % 5.8 % (<6.0)
[2023-08-10 11:47] LABS: Alanine Aminotransferase 13 U/L (0-40); Albumin Level 4.5 g/dL (3.5-5.0); Alkaline Phosphatase 55 U/L (39-117); Anion Gap 9 (12-20); Aspartate Amino Transferase 12 U/L (5-37); Bilirubin Total 0.7 mg/dL (0.0-1.0); Blood Urea Nitrogen 14 mg/dL (9-16); Calcium 9.3 mg/dL (8.4-10.2); Carbon Dioxide 30 mmol/L (22-29); Chloride 106 mmol/L (96-108); Cholesterol 210 mg/dL (<200); Estimated Glomerular Filt Rate > 60; Glucose Fasting 129 mg/dL (60-99); HDL Cholesterol 53 mg/dL (>40); LDL Cholesterol Calculated 142 mg/dL (<100); Potassium 4.6 mmol/L (3.3-5.1); Sodium 140 mmol/L (135-145); Total Protein 6.9 g/dL (6.5-8.0); Triglycerides 75 mg/dL (<150)
[2023-08-10 11:51] LABS: Rheumatoid Factor < 13.0 IU/mL (<15.0)
[2023-08-10 12:01] LABS: TSH reflex Free T4 0.94 uIU/mL (0.32-4.0)
[2023-08-13 20:48] LABS: Anti Nuclear Antibody Screen NEGATIVE (NEGATIVE)
[2023-08-17 12:48] LABS: Testosterone, Free 83.6 pg/mL (35.0-155.0); Testosterone, Total 418 ng/dL (250-1100)
== END 2023-08-10 10:25 | disposition home or self-care (01) ==
LOC: HO.LAB 10:24
PROVIDERS: Absent Provider Urology; PCP Physician Assistant; Visit Provider Physician Assistant
DX: E11.9 Type 2 diabetes mellitus without complications (principal); E78.2 Mixed hyperlipidemia; M79.10 Myalgia, unspecified site; N48.6 Induration penis plastica; N52.9 Male erectile dysfunction, unspecified
CPT/HCPCS: 36415; 80053; 80061; 82550; 83036; 84402; 84403; 84443; 85027; 86038; 86431

== ENCOUNTER 2024-02-28 14:41 | Outpatient (AMB) | payer OTHER, SELFPAY ==
--- NOTE | 2024-02-28 14:45 | MHC.PC.OV ---
Vital Signs 02/28/24 14:47 Height 5 ft 8 in Weight 162 lb 6 oz BMI 24.7 BP 106/68 Blood Pressure Location Lt brachial Position Sitting Pulse 93 Pulse Source Pulse Oximeter Pulse Oximetry (%) 96 Oxygen Delivery Method Room Air Intake Visit Reasons: Annual Exam Intake Note: Patient is here today for a physical. Jumpbasting Canvas Baster Required: No Accompanied by: Self / Same As Patient Allergies canagliflozin [Invokana] Allergy (Unknown, Verified 02/28/24 14:46) joint pain empagliflozin [From Jardiance] Allergy (Unknown, Verified 02/28/24 14:46) joint pain Medication List - Last Reconciled 02/28/24 by Chino Gutierrez PA-C alcohol swabs 1 pad topical BID 30 days aspirin 81 mg PO DAILY blood sugar diagnostic (FreeStyle Lite Strips) 1 strip miscellaneous BID 30 days flash glucose scanning reader (FreeStyle Mathew 2 Catron) As directed flash glucose sensor (FreeStyle Mathew 2 Sensor kit) Change every 14 days lisinopril 2.5 mg PO DAILY magnesium oxide 250 mg PO DAILY 90 days metformin 500 mg PO BID omeprazole 20 mg PO DAILY simvastatin 40 mg PO DAILY 90 days Tobacco use date assessed: 02/28/24 Dental Screening Dental Screen Date: 02/28/24 Did you have a dental visit in the last 12 months?: Yes Did you have a dental problem in the last 6 months where you did not have access to dental care?: No Was dental information given to patient?: Patient has dentist HPI Annual Exam HPI Details Patient is a 48-year-old male here today for routine annual physical ? Patient has a past medical history significant type 2 diabetes, hyperlipidemia tobacco use disorder. .. Type 2 diabetes: Today's A1c above 10. He reports he has stopped taking office diabetic medication , he has also stopped regularly checking his blood sugars. He had try to keto diet and lost a lot of weight. Previously had trouble getting Trulicity from the pharmacy due to availability. PLAN: Willing to try an alternative GLP 1 monitor neuro, will restart metformin for better glycemic control as well. .. Hyperlipidemia: Most recent lipid panel showing improved total cholesterol and LDL. LDL still above goal of 100. --> Patient does understand and willing to restart on statin therapy. He will continue to work on low-cholesterol diet .. Smoker:? He reports he cut down smoking a bit his last set office visit. She does understand he needs to quit smoking though has found very difficult to do so.? He is willing to retry nicotine replacement. Has tried Wellbutrin though is not effective for him. Colon cancer screening: willing to do colonoscopy . Vaccines: Up-to-date with COVID vaccine, NEeds PCV, UTD with Td , decline flu vaccine PFSH Surgical History History of appendectomy Family History Father Diabetes CVD (cardiovascular disease) Heart problem Mother Hypoglycemia Daughter Hypoglycemia Daughter In good health Son No problems noted. Son No problems noted. Son No problems noted. Brother No problems noted. 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 1. Little interest or pleasure in doing things: not at all 2. Feeling down, depressed, or hopeless: not at all 3. Trouble falling or staying asleep, or sleeping too much: several days 4. Feeling tired or having little energy: several days 5. Poor appetite or overeating: several days 6. Feeling bad about yourself - or that you are a failure or have let yourself or your family down: not at all 7. Trouble concentrating on things, such as reading the newspaper or watching television: several days 8. Moving or speaking so slowly that other people could have noticed. Or the opposite - being so fidgety or restless that you have been moving around a lot more than usual: not at all 9. Thoughts that you would be better off or of hurting yourself in some way: several days Total score: 5 Depression Screening Interpretation: Positive Depression Screening Follow-up: Existing condition and Declines treatment Depression Screening Done: Yes 36269 - PHQ-9 Billing: Yes Source: Developed by Drs. Sean Webster, Carolyn Modi, Dillan Hernandez and colleagues, with an educational nick from [employer]. Thrive Questionnaire Date Thrive assessed: 02/28/24 I am a: Patient What is your living situation today?: I have a steady place to live Within the past 12 months, did the food you bought not last and you didn't have the money to get more?: Sometimes True Within the past 12 months, did you worry whether your food would run out before you got money to buy more?: Sometimes True Do you have trouble paying for medicines?: No Do you have trouble getting transportation to medical appointments?: No Do you have trouble paying your heating and electricity bill?: No Do you have trouble taking care of your child, family member or friend?: No Do you have trouble with day-to-day activities such as bathing, preparing meals, shopping, managing finances, etc.?: No Are you currently unemployed and looking for a job?: Yes Are you interested in more education?: Yes Please select the resources that you would like help with: Food Currently or been in a relationship where the following occur: No concerns reported THRIVE Score: 2 AUDIT C Alcohol Use Questionnaire (AUDIT-C) 1. How often do you have a drink containing alcohol?: 2-4 times a month 2. How many drinks containing alcohol do you have on a typical day when you are drinking?: 5 or 6 3. How often do you have six or more drinks on one occasion?: Never Total Score: 4 ANDRE-7 AMB Questionnaire ANDRE-7 Date ANDRE - 7 assessed: 02/28/24 Feeling nervous, anxious, or on edge: 0 = Not at all Not being able to stop or control worryin = Not at all Worrying too much about different things: 0 = Not at all Trouble relaxin = Not at all Being so restless that it is hard to sit still: 0 = Not at all Becoming easily annoyed or irritable: 0 = Not at all Feeling afraid as if something awful might happen: 0 = Not at all Total ANDRE-7 score (0-4 normal; 5-9 mild; 10-14 moderate; 15-21 severe): 0 Source: Developed by Drs. Sean Webster, Carolyn Modi, Dillan Hernandez and colleagues, with an educational nick from [employer]. ANDRE-7 Assessment Billing ANDRE-7 Assessment Tool: ANDRE-7 Assessment 95690 Review of Systems Const Denies body aches, Denies chills, Denies excessive sweating, Denies fatigue, Denies fever(s) and Denies headache(s) Eyes Denies blurry vision ENT Denies dysphagia, Denies vertigo, Denies dizziness, Denies headache(s), Denies hearing loss and Denies tinnitus Card Denies chest pain, Denies chest pain with activity, Denies syncope, Denies irregular heart rhythm and Denies dyspnea Resp Denies chest congestion, Denies cough, Denies hemoptysis, Denies dyspnea and Denies wheezing GI Denies abdominal pain, Denies melena, Denies hematochezia, Denies coffee ground emesis, Denies dysphagia, Denies diarrhea, Denies nausea and Denies vomiting Denies difficulty urinating, Denies dysuria, Denies urinary frequency, Denies urinary hesitancy and Denies urinary urgency Musc Denies arthralgias, Denies limited range of motion, Denies muscle cramps and Denies muscle weakness Skin/Breast Denies rash and Denies skin ulcer Neuro Denies Abnormal speech present, Denies confusion, Denies vertigo, Denies dizziness, Denies syncope, Denies headache(s), Denies memory loss and Denies seizure-like activity Psych Denies anxiety, Denies confusion, Denies depression, Denies memory loss, Denies panic attacks and Denies paranoia Endo Denies excessive sweating, Denies fatigue, Denies flushing, Denies polydipsia and Denies polyuria Aller/Immun Denies wheezing Physical exam (Primary Care) Vital Signs: Last Vital Signs Pulse 93 02/28/24 14:47 BP 106/68 02/28/24 14:47 Pulse Ox 96 02/28/24 14:47 Oxygen Delivery Method Room Air 02/28/24 14:47 BMI result Body Mass Index 24.7 Tobacco/Smoking Status: Tobacco use Status Tobacco use date assessed 02/28/24 02/28/24 14:50 Patient Tobacco Use Status Current everyday Tobacco 02/28/24 14:58 Tobacco use type Cigarette 02/28/24 14:58 e-Cigarette/Vaping Use Never Used 02/28/24 14:58 Are you ready to quit: No Tobacco cessation counseling provided: Yes Items discussed: Nicotine replacement Relapse Prevention: discussed the importance of a supportive environment, discussed negative mood or depression after quitting, weight gain after smoking is common and discussed dietary, exercise and/or lifestyle changes Number of minutes spent counselin CPT code: 02832 - 4-10 Minutes PHQ-9: PHQ-9 Score PHQ-9: Total score 5 02/28/24 15:18 Depression Screening Interpretation: Positive Depression Screening Follow-up: Existing condition and Declines treatment Thrive Assessment: Date of Thrive Assessment Date Thrive assessed 02/28/24 02/28/24 14:50 Currently or been in a relationship where the following occur: No concerns reported Const General: cooperative, comfortable, no acute distress, alert and awake; No confusion Orientation/consciousness: oriented to person, oriented to place, patient oriented x3 and No confusion HENMT Head: Yes normocephalic Ears: external ears normal and TM's normal bilaterally Face and sinus: No sinus tenderness Mouth: Normal oral and palatal mucosa present and tongue normal Teeth and gingiva: dentition normal and gingiva normal Throat: Yes posterior oropharynx normal, Yes tonsils normal and Yes uvula midline Eyes Conjunctivae: conjunctivae normal Sclerae: sclerae normal Pupils: Equal, round and reactive pupils present EOM: EOMs intact bilaterally Direct Ophthalmoscopy: No no photophobia Neck Neck: Yes no lymphadenopathy, No tender and Yes no JVD Thyroid: Thyroid normal Carotids: no bruits Chest Chest palpation & inspection: no tenderness Resp Effort & Inspection: normal respiratory effort, no audible wheezes, not labored and no stridor Auscultation: no crackles, no rales, no rhonchi and no wheezes Cardio Jugular venous distension: no JVD Rate: regular rate, not bradycardic and not tachycardic Rhythm: regular rhythm Bruits: no carotid bruits Peripheral pulses: Peripheral pulses 2+ throughout GI Inspection: Yes normal to inspection, No abdominal wall ecchymosis and No visible herniation Palpation (GI): Soft to palpation, nontender, no guarding, not rigid and No hepatosplenomegaly present Auscultation: normoactive bowel sounds General: Yes no CVA tenderness Back/Spine/Pelvis Back: no CVA tenderness and No back tenderness Cervical Spine: cervical ROM normal Thoracic/Lumbar Spine: thoracic and lumbar spine normal to inspection, straight leg raise negative bilaterally, No thoraco-lumbar ROM limited and No lumbar spinal tenderness Skin Lesions: no lesions Rashes: no rashes Wounds: no wounds Neuro General: oriented to person, oriented to place, patient oriented x3, CN's II-XI intact bilaterally and No confusion Cranial nerves: Yes Equal, round and reactive pupils present and Yes Normal accommodation reflex present Cognition (Neuro): normal cognition Speech: No Abnormal speech present Gait exam (Neuro): Normal gait present Motor exam (neuro): 5/5 motor strength present throughout Extrem Right upper extremity: full ROM; no cyanosis Left upper extremity: full ROM; no cyanosis Right lower extremity: no edema Left lower extremity: no edema Psych Appearance: grossly normal Mental Status: mental status grossly normal Affect: normal affect Attitude: cooperative Thought process: Normal thought process present Results AMB Hemoglobin A1c AMB Hemoglobin A1c 10.7 % Last Edit by ZHAO Meehan on 02/28/24 15:19 Immunizations pneumoc 20-gayle conj-dip cr(PF) 0.5 mL IM syringe Performing Provider: Chino Gutierrez PA-C [facility] Administered by: ZHAO Meehan on 02/28/24 15:12 Dose Route Admin Location Dispensed Lot Number Expiration Date NDC Head Of Store Operations 0.5 mL IM Right Deltoid 0.5 mL [id number] 05/07/25 [id number] [employer] VIS Given Date VIS Provided VIS Publication Date 02/28/24 Single Vaccine 21 Eligibility Eligibility Date Funding Source Not [facility] Eligible 02/28/24 Private Results Reviewed Results Reviewed: Laboratory Last Values Hgb A1c (Clinic) 10.7 % (4.0-6.0) H 02/28/24 15:12 Assessment and Plan Assessment & Plan (1) Annual physical exam: Code(s): Z00.00 - Encounter for general adult medical examination without abnormal findings (2) DMII (diabetes mellitus, type 2): Code(s): E11.9 - Type 2 diabetes mellitus without complications Qualifiers: Diabetes mellitus complication status: without complication Diabetes mellitus group home insulin use: without group home use Qualified Code(s): E11.9 - Type 2 diabetes mellitus without complications Plan: Patient's type 2 diabetes suboptimally controlled with current medication. Today's A1c above 10. Again has not been compliant with his diabetic medication. He reports having trouble getting Trulicity due to availability at pharmacy. He is willing to try an alternative GLP 1 thus will send in Mounjaro .. He will continue working on lifestyle modifications to continue to control diabetes. Advised on increasing his physical activity as tolerated. Goal A1c to be below 7.0 (3) HLD (hyperlipidemia): Code(s): E78.5 - Hyperlipidemia, unspecified Qualifiers: Hyperlipidemia type: mixed hyperlipidemia Qualified Code(s): E78.2 - Mixed hyperlipidemia Plan: Continues on statin therapy most recent lipid panel showing appropriate total cholesterol. LDL remains slightly elevated at 116. He will continue to work on dietary modification. He reports being somewhat noncompliant with use of his medication. He did have side effects to higher potency statins Will restart on simvastatin 40mg. Goal LDL to be below 100 (4) Tobacco use disorder: Code(s): F17.200 - Nicotine dependence, unspecified, uncomplicated Plan: Unfortunately continues to smoke and does understand he needs to quit. Has tried nicotine replacement which was not active interested in trying any medication. (5) Colon cancer screening: Code(s): Z12.11 - Encounter for screening for malignant neoplasm of colon Plan: Needs to do colonoscopy Orders: Orders Complete Blood Count no Diff 02/28/24 E11.9 - Type 2 diabetes mellitus without complications Lipid Panel 02/28/24 E11.9 - Type 2 diabetes mellitus without complications Prostate Specific Antigen Scr 02/28/24 E11.9 - Type 2 diabetes mellitus without complications, Z12.5 - Encounter for screening for malignant neoplasm of prostate Pneumococcal 20 Immunization 02/28/24 Z23 - Encounter for immunization Comprehensive [place]. Panel Fast 02/28/24 E11.9 - Type 2 diabetes mellitus without complications AMB Hemoglobin A1c 02/28/24 E11.9 - Type 2 diabetes mellitus without complications Referrals Gastroenterology Referral Z12.11 - Encounter for screening for malignant neoplasm of colon Medications: New tirzepatide (Mounjaro) for 4 weeks 2.5 mg (0.5 mL) subcut QWEEK 4 weeks 2 mL 1RF E11.9 - Type 2 diabetes mellitus without complications tadalafil 5 mg PO DAILY 5 days PRN 5 tabs 0RF sexual activity N52.9 - Male erectile dysfunction, unspecified Refilled magnesium oxide 250 mg PO DAILY 90 days 90 tabs 1RF M79.10 - Myalgia, unspecified site flash glucose sensor (FreeStyle Mathew 2 Sensor kit) Change every 14 days 6 ea 3RF E11.9 - Type 2 diabetes mellitus without complications Patient Instructions: Goal: A1c to be below 7.0, LDL to be below 100 Barriers: Adherence to physical activity and healthy eating habits, completely stopped smoking Coding Level of Care Code Est Pt Prev Care 40-64y(60761) Diagnoses Annual physical exam Z00.00 Type 2 diabetes mellitus without complication, without long-term current use of insulin E11.9 Diabetes mellitus complication status: without complication Diabetes mellitus group home insulin use: without group home use Mixed hyperlipidemia E78.2 Hyperlipidemia type: mixed hyperlipidemia Tobacco use disorder F17.200 Colon cancer screening Z12.11 Additional Codes ANDRE-7 Assessment Billing - ANDRE-7 Assessment Tool: ANDRE-7 Assessment 93497 ([id number]) Vital Signs *Quality* - CPT code: 48280 - 4-10 Minutes ([id number])
[2024-02-28 14:47] VITALS: BP 106/68; PULSE 93; O2SAT 96; BMI 24.7
== END 2024-02-28 15:27 | disposition home or self-care (01) ==
PROVIDERS: PCP Physician Assistant; Visit Provider Physician Assistant
DX: Z00.00 Encounter for general adult medical examination without abnormal findings (principal); E11.9 Type 2 diabetes mellitus without complications; E78.2 Mixed hyperlipidemia; F17.200 Nicotine dependence, unspecified, uncomplicated; Z12.11 Encounter for screening for malignant neoplasm of colon

== ENCOUNTER → 2024-02-28 14:41 | Outpatient (BNVA) | payer OTHER, SELFPAY | PROVIDERS: PCP Physician Assistant; Visit Provider Physician Assistant | DX: Z00.00 Encounter for general adult medical examination without abnormal findings (principal); Z23 Encounter for immunization; E11.9 Type 2 diabetes mellitus without complications; E78.2 Mixed hyperlipidemia; Z71.6 Tobacco abuse counseling | CPT/HCPCS: 83036; 90471; 90677; 96127; 99396 ==